=== PATIENT | male | born 1970 | race Two or more races ===

== ENCOUNTER 2017-01-17 14:45 | Emergency (ER) | payer OTHER ==
[~2017-01-17] VITALS: Ht 170.2 cm; Wt 97.5 kg
[~2017-01-17 14:45] MED LIST: [UNRECOGNIZED DRUG - CODE]
[2017-01-17] MEDS ORDERED: LORAZEPAM INJ 2 MG/ML VIAL ONE (15:08)
[2017-01-17] MEDS ORDERED: IV NS 0.9% 1,000 ML ONE (15:11)
[2017-01-17] MEDS ORDERED: IV SET PRIMARY PUMP SET 1 EA INFUS.SET MC ONE ×2 (15:11→17:59)
[2017-01-17 15:17] LABS: BASOPHILS # (AUTO) 0.3 /CMM (0.0-0.2); BASOPHILS % (AUTO) 2.7 % (0.0-2.0); DIFF TOTAL % 100 %; EOSINOPHILS # (AUTO) 0.2 /CMM (0.0-0.7); EOSINOPHILS % (AUTO) 2.4 % (0.0-6.0); HEMATOCRIT 51 % (39-51); LYMPHOCYTES # (AUTO) 3.6 /CMM (0.8-4.8); LYMPHOCYTES % (AUTO) 36.3 % (20.0-44.0); MEAN CORPUSCULAR HEMOGLOBIN 31 PG (26.0-33.0); MEAN CORPUSCULAR HGB CONC 34 g/dl (31.0-36.0); MEAN CORPUSCULAR VOLUME 91 fL (80-96); MONOCYTES # (AUTO) 0.6 /CMM (0.1-1.30); MONOCYTES % (AUTO) 5.9 % (2.0-12.0); NEUTROPHILS # (AUTO) 5.2 /CMM (1.8-8.9); NEUTROPHILS % (AUTO) 52.7 % (43.0-81.0); PLATELET COUNT (AUTO) 295 /CMM (150-450); RED BLOOD CELL COUNT(AUTO) 5.55 MIL/uL (4.5-6.0); WHITE BLOOD COUNT (AUTO) 9.9 K/uL (4.3-11.0)
[2017-01-17] MEDS ORDERED: IV NS 0.9% 1,000 ML BAG IV ONE (15:30)
[2017-01-17] MEDS ORDERED: LORAZEPAM INJ 2 MG/ML VIAL IVP ONE (15:30)
[2017-01-17 15:31] LABS: INR 1.05 (0.87-1.13)
[2017-01-17 15:47] LABS: VALPROIC ACID 1 ug/mL (50-100)
[2017-01-17 15:48] LABS: ALANINE AMINOTRANSFERASE 80 U/L (12-78); ALBUMIN 4.1 g/dL (3.4-5.0); ANION GAP 20 (5-14); ASPARTATE AMINOTRANSFERASE 58 U/L (15-37); BILIRUBIN,DIRECT 0.1 mg/dL (0.0-0.2); BILIRUBIN,TOTAL 0.4 mg/dL (0.2-1.0); CALCIUM, SERUM 8.8 mg/dL (8.5-10.1); CARBON DIOXIDE 20 mmol/L (21-32); CHLORIDE 103 mmol/L (98-107); CREATININE 1.1 mg/dL (0.6-1.3); GFR 71 mL/min (>60); GLUCOSE 150 mg/dL (74-106); POTASSIUM 4.3 mmol/L (3.5-5.1); SODIUM SERUM 139 mmol/L (136-145); UREA NITROGEN, BLOOD 10 mg/dL (7-18)
[2017-01-17 15:49] LABS: INDIRECT BILIRUBIN 0.3 mg/dL (0.0-1.1)
[2017-01-17 16:20] LABS: CANNABINOID, URINE NEGATIVE (NEGATIVE); PHENCYCLIDINE SCREEN,URINE NEGATIVE (NEGATIVE)
[2017-01-17] MEDS ORDERED: PHENYTOIN SODIUM IV 1,000 MG in IV NS 0.9% 100 ML IV ONE (18:00)
[2017-01-17] MEDS ORDERED: DIVA500T2 PO (18:25)
[2017-01-17] MEDS ORDERED: HALO100A2 IM (18:25)
[2017-01-17] MEDS ORDERED: OLAN5TAB3 PO (18:25)
[2017-01-17] MEDS ORDERED: PHEN100C12 PO (18:25)
[2017-01-17] MEDS ORDERED: HALO5TAB PO (18:26)
[2017-01-17] MEDS ORDERED: PYRI100T6 PO (18:26)
[2017-01-17] MEDS ORDERED: BENZ1TAB7 PO (18:26)
[2017-01-17] MEDS ORDERED: LACO200T2 PO (18:26)
[2017-01-17] MEDS ORDERED: DIVALPROEX SODIUM 500 MG TABLET.DR PO ONE (18:51)
[2017-01-17] MEDS ORDERED: VALPROIC ACID 250 MG/5 ML UDC ONE (18:54)
[2017-01-17] MEDS ORDERED: VALPROIC ACID 250 MG/5 ML UDC PO ONE (19:00)
[2017-01-17 21:02] VITALS: BP 128/78
== END 2017-01-17 21:02 | disposition home or self-care (01) ==
LOC: ER 15:37
DX: G40.909 Epilepsy, unspecified, not intractable, without status epilepticus (principal); F20.9 Schizophrenia, unspecified; R79.1 Abnormal coagulation profile
CPT/HCPCS: 36415; 80048; 80076; 80164; 80185; 80305; 85025; 85730; 93005; 96365; 96375; 99285; A4606 ×2; G0480; J1165; J2060; J7030 ×2; Z7610 ×2

== ENCOUNTER 2021-02-19 21:46 | Emergency (ER) | payer OTHER ==
[~2021-02-19] VITALS: Ht 172.7 cm; Wt 67.1 kg
[~2021-02-19 21:46] MED LIST changes: +BENZ1TAB7 PO; +DIVA500T2 PO; +HALO100A2 IM; +HALO5TAB PO; +LACO200T2 PO; +OLAN5TAB3 PO; +PHEN100C12 PO; +PYRI100T6 PO; -[UNRECOGNIZED DRUG - CODE]
[2021-02-19] MEDS ORDERED: LEVETIRACETAM SOL (5 ML) 100 MG/ML UDC PO SCH (22:30)
[2021-02-19] MEDS ORDERED: LEVETIRACETAM (250 MG) 250 MG TABLET PO ONE (22:40)
[2021-02-19] MEDS ORDERED: LORAZEPAM INJ 2 MG/ML VIAL ONE (23:00)
--- NOTE | 2021-02-19 23:00 | NUR ---
NOTED PT HAVING SEIZURE, ERM,D MADE AWARE WITH ORDERS RECEIVED. WILL MEDICATE PT.
--- NOTE | 2021-02-19 23:03 | NUR ---
PT MEDICATED ORDERED.
[2021-02-19] MEDS ORDERED: LORAZEPAM INJ 2 MG/ML VIAL IV ONE (23:30)
[2021-02-20] MEDS ORDERED: PHENYTOIN SODIUM IV 100 MG/2ML VIAL ONE (00:26)
[2021-02-20] MEDS ORDERED: phenytoin SODIUM IV 250 MG/5 ML VIAL IV ONE (00:29)
[2021-02-20] MEDS ORDERED: PHENYTOIN SODIUM IV 1,000 MG in IV NS 0.9% 100 ML IV ONE (00:30)
--- NOTE | 2021-02-20 01:32 | NUR ---
Patient discharged to home in stable condition. Written and verbal after care instructions given. Patient verbalizes understanding of instruction. IV removed. Catheter intact and site benign. Pressure and 4x4 applied to site. No bleeding noted.
[2021-02-20 01:35] VITALS: BP 125/70
[2021-02-20] MEDS ORDERED: ZONI100C31 PO (17:47)
[2021-02-20] MEDS ORDERED: HYDR-500 PO (17:47)
[2021-02-20] MEDS ORDERED: VALB80CA PO (17:47)
[2021-02-22] MEDS ORDERED: DIVA500T2 PO (11:26)
== END 2021-02-20 01:35 | disposition home or self-care (01) ==
LOC: ER 21:49
DX: G40.909 Epilepsy, unspecified, not intractable, without status epilepticus (principal); F20.9 Schizophrenia, unspecified; Z79.899 Other long term (current) drug therapy
CPT/HCPCS: 36415; 80185; 93005; 96365; 96375; 99284; J1165; J2060; J7030; J7040

== ENCOUNTER 2021-02-20 15:16 | Inpatient (IN) | payer OTHER ==
[~2021-02-20] VITALS: Ht 172.7 cm; Wt 92.5 kg
[2021-02-20] MEDS ORDERED: LEVETIRACETAM (500MG) 1,000 MG in IV NS 0.9% 100 ML IV SCH (15:30)
[2021-02-20] MEDS ORDERED: LEVETIRACETAM (500MG) 500 MG in IV NS 0.9% 100 ML IV ONE (15:30)
--- NOTE | 2021-02-20 15:50 | NUR ---
ABRIL FROM HOME TO ER BED 6. AAOX3. NOT IN RESP DISTRESS, BREATHING EVEN AND UNLABORED. BROUGHT IN FOR A WITNESSED SEIZURE. NO REPORT OF FALL. NO HEAD TRAUMA AND ORAL TRAUMA NOTED. PT IS PLACE DON SEIZURE PRECAUTION, PADDED SIDERAILS. MD WAS AT THE BEDSIDE FOR EVAL. ORDERS RECEIVED, NOTED AND CARRIED OUT.
[2021-02-20 15:52] LABS: BASOPHILS % (AUTO) 0.4 % (0.0-2.0); EOSINOPHILS % (AUTO) 0.7 % (0.0-6.0); HEMATOCRIT 43 % (39-51); HEMOGLOBIN 14.9 g/dL (13.5-17.5); LYMPHOCYTES # (AUTO) 2.5 /CMM (0.8-4.8); LYMPHOCYTES % (AUTO) 28.5 % (20.0-44.0); MEAN CORPUSCULAR HGB CONC 35 g/dl (31.0-36.0); MEAN CORPUSCULAR VOLUME 92 fL (80-96); MONOCYTES # (AUTO) 0.8 /CMM (0.1-1.30); MONOCYTES % (AUTO) 8.8 % (2.0-12.0); NEUTROPHILS # (AUTO) 5.4 /CMM (1.8-8.9); NEUTROPHILS % (AUTO) 61.6 % (43.0-81.0); PLATELET COUNT (AUTO) 296 /CMM (150-450); RED BLOOD CELL COUNT(AUTO) 4.63 MIL/uL (4.5-6.0); WHITE BLOOD COUNT (AUTO) 8.8 K/uL (4.3-11.0)
[2021-02-20 16:16] LABS: CALCIUM, SERUM 8.7 mg/dL (8.5-10.1); CREATININE 0.9 mg/dL (0.6-1.3); POTASSIUM 3.6 mmol/L (3.5-5.1)
--- NOTE | 2021-02-20 16:40 | NUR ---
MOTHER COREY [phone]
[2021-02-20] MEDS ORDERED: IV NS 0.9% 1,000 ML BAG IV ONE (17:30)
[2021-02-20] MEDS ORDERED: ZONI100C31 PO (17:47)
[2021-02-20] MEDS ORDERED: HYDR-500 PO (17:47)
[2021-02-20] MEDS ORDERED: VALB80CA PO (17:47)
--- NOTE | 2021-02-20 18:28 | NUR ---
LAB CALLED PT COVID RESULT NEGATIVE (-)
--- NOTE | 2021-02-20 19:31 | NUR ---
PT TO CT ON [place]
--- NOTE | 2021-02-20 21:00 | NUR ---
REPORT GIVEN TO SEAMUS SHELTON FOR DERRELL
[2021-02-20 21:10] VITALS: BP 122/77
--- NOTE | 2021-02-20 21:11 | NUR ---
PT TRANSPORT NANCY TO UNIT ON [facility] WITH EMT AND RN AT BEDSIDE W/ ACLS PROTOCOL. NAD NOTED DURING TRANSPORT.
--- NOTE | 2021-02-20 21:15 | NUR ---
RN NOTES Received pt. from ER with Dx. Of Breakthrough Seizures, a/ox2-3, SR on tele monitor HR-79, admission instruction was given, call light within reach, siderialsupx2, continue to monitor
[2021-02-20 21:20] VITALS: BP 122/77
[2021-02-20] MEDS: LEVETIRACETAM (250 MG) 250 MG TABLET PO SCH (21:59)
[2021-02-20] MEDS ORDERED: ZOLPIDEM TARTRATE 5 MG TABLET PO PRN (22:00)
[2021-02-20] MEDS ORDERED: LORAZEPAM INJ 2 MG/ML VIAL IV PRN (22:00)
[2021-02-20] MEDS ORDERED: ACETAMINOPHEN 325 MG TABLET PO PRN (22:00)
[2021-02-20] MEDS ORDERED: ONDANSETRON HCL/PF 4 MG/2 ML VIAL IVP PRN (22:00)
[2021-02-20] MEDS ORDERED: HYDROCODONE/APAP 5/325MG TABLET PO PRN (22:00)
[2021-02-21] VITALS: BP 113/71
--- NOTE | 2021-02-21 | NUR ---
RN NOTES Patient pulled out his IV access and refused to have another one, will try again later
--- NOTE | 2021-02-21 02:06 | NUR ---
RN NOTES Clarify with DR. Finn regarding pt's Keppra 500mg IV Q 12 hrs. which was ordered by in ER and pharmacy continued it... pt is also receiving Keppra 1000mg po .. Dr. Finn order to discontinue Keppra IV , order noted and carried out
[2021-02-21 04:07] VITALS: BP 124/75
--- NOTE | 2021-02-21 06:05 | NUR ---
RN NOTES Dr Finn came and made aware that pt. pulled out his IV access and refused to have one at this time.
--- NOTE | 2021-02-21 06:16 | NUR ---
RN NOTES AWAKE, MORNING CARE RENDERED, CALL LIGHT WITHIN REACH, [id number], PT. NEEDS ATTENDED
--- NOTE | 2021-02-21 07:00 | NUR ---
TELE OPENING NOTES RECEIVED REPORT FROM SEAMUS SHELTON. PT. IN BED ALERT AND ORIENTED X2. PATIENT SAID "BLAIRE IS COMING" ON DERRELL REPORT. SINUS RHYTHM AND SINUS TACHY. RESPIRATORY ROOM AIR. NO IV ACCESS WILL FOLLOW UP WITH MD. REPORTS NO PAIN. FALL AND SEIZURE PRECAUTION PUT IN PLACE. PADDED SIDE RAILS AND SUCTION AT BED SIDE. CALL LIGHT WITHIN REACH. URINAL WITHIN REACH.
[2021-02-21 07:36] LABS: BASOPHILS % (AUTO) 0.2 % (0.0-2.0); EOSINOPHILS % (AUTO) 0.7 % (0.0-6.0); HEMATOCRIT 45 % (39-51); HEMOGLOBIN 15.3 g/dL (13.5-17.5); LYMPHOCYTES # (AUTO) 1.9 /CMM (0.8-4.8); LYMPHOCYTES % (AUTO) 24.8 % (20.0-44.0); MEAN CORPUSCULAR HGB CONC 34 g/dl (31.0-36.0); MEAN CORPUSCULAR VOLUME 93 fL (80-96); MONOCYTES # (AUTO) 0.6 /CMM (0.1-1.30); MONOCYTES % (AUTO) 7.5 % (2.0-12.0); NEUTROPHILS % (AUTO) 66.8 % (43.0-81.0); PLATELET COUNT (AUTO) 346 /CMM (150-450); RED BLOOD CELL COUNT(AUTO) 4.82 MIL/uL (4.5-6.0); WHITE BLOOD COUNT (AUTO) 7.5 K/uL (4.3-11.0)
[2021-02-21] MEDS: PANTOPRAZOLE 40 MG TABLET.DR PO SCH (07:47)
[2021-02-21 08:00] VITALS: BP 118/73
[2021-02-21 08:08] LABS: ALBUMIN 3.5 g/dL (3.4-5.0); BILIRUBIN,TOTAL 0.5 mg/dL (0.2-1.0); CALCIUM, SERUM 8.6 mg/dL (8.5-10.1); MAGNESIUM 2.5 mg/dL (1.8-2.4); PHOSPHORUS 3.3 mg/dL (2.5-4.9); POTASSIUM 3.5 mmol/L (3.5-5.1); TOTAL PROTEIN, SERUM 7.6 g/dL (6.4-8.2)
[2021-02-21 08:11] LABS: THYROID STIMULATING HORMONE 2.93 uIU/mL (0.358-3.74)
[2021-02-21] MEDS ORDERED: DIVALPROEX SODIUM 500 MG TABLET.DR PO SCH (09:00)
[2021-02-21] MEDS: LACOSAMIDE 50 MG TABLET PO SCH ×2 (09:47→21:15)
[2021-02-21] MEDS: LEVETIRACETAM (250 MG) 250 MG TABLET PO SCH ×2 (09:47→21:15)
[2021-02-21] MEDS: BENZTROPINE MESYLATE (1 MG) 1 MG TABLET PO SCH ×2 (09:47→17:26)
[2021-02-21] MEDS: PYRIDOXINE HCL 50 MG TABLET PO SCH (09:48)
[2021-02-21] MEDS: ZONISAMIDE 100 MG CAPSULE PO SCH (10:04)
[2021-02-21] MEDS: hydrOXYzine PAMOATE 25 MG CAPSULE PO SCH (10:04)
--- NOTE | 2021-02-21 13:00 | NUR ---
PATIENT'S MOM DROPPED OFF LUNCH FOR PT. AT 1135 DOWN TO SECURITY. PATIENT EATS ABOUT 25% OF HIS FOOD. PT NEEDS TO BE FED IF NOT HE DOES NOT TOUCH HIS FOOD. PT KEEPS SCREAMING "BLAIRE IS COMING" AND EVEN REPORTS HE WANT TO SEE BLAIRE. SAFETY PRECAUTION IN PLACE: FALL AND SEIZURE. BED IN LOWEST POSITION. CALL LIGHT WITHIN REACH. URINAL WITHIN REACH. WILL CONTINUE TO MONITOR.
--- NOTE | 2021-02-21 14:49 | NUR ---
RN NOTES NEW IV ACCESS INSERTED AT R WRIST GAUGE NUMBER 22. SECURED WITH TAPE AND DATED. WILL CONTINUE TO MONITOR.
[2021-02-21] MEDS: DIVALPROEX SODIUM 250 MG TABLET.DR PO SCH (17:26)
--- NOTE | 2021-02-21 18:47 | NUR ---
RN CLOSING NOTES PT. IN BED ALERT AND ORIENTED X2 TO NAME AND PLACE. PT. REPORTS OF WANTING TO SEE BLAIRE AND LAUGHS HYSTERICALLY OUT OF NOWHERE. SINUS TACHY. RESPIRATORY ROOM AIR. SALINE LOCK IN RIGHT WRIST 22G INITIAL AND DATED. DENIES PAIN OR DISCOMFORT. DENIES OF SEIZURE AURA. CONTINENT. 1, 350 ML OF OUTPUT FOR THE WHOLE SHIFT, TANO COLOR. NO BOWEL MOVEMENT. FALL AND SEIZURE PRECAUTION PUT IN PLACE. PADDED SIDE RAILS AND SUCTION AT BED SIDE. BED IN LOWEST POSITION. CALL LIGHT WITHIN REACH. URINAL WITHIN REACH. WILL TRANSFER CARE/MONITORING TO NEXT SHIFT.
[2021-02-21 20:00] VITALS: BP 116/85
[2021-02-22] VITALS: BP 109/69
[2021-02-22 04:00] VITALS: BP 117/75
--- NOTE | 2021-02-22 06:20 | NUR ---
INSPECTOR OF DREDGING NOTES AWAKE & RESPONSIVE. NOT IN ANY DISTRESS. NO SOB NOTED. DENIES ANY PAIN OR DISCOMFORT AT THIS TIME. ON TELE SR @ 84 WITH IV-HL PATENT & INTACT. MONITORED ACCORDINGLY. CALL LIGHT WITHIN REACH. BED IN LOWEST POSITION. SR UP X 3 WITH BED ALARM ON FOR SAFETY. WILL ENDORSE TO NEXT SHIFT.
--- NOTE | 2021-02-22 07:23 | NUR ---
RN NOTES PT. IS IN BED RESTING, EYES CLOSED, ABLE TO BE AWAKENED. ALERT AND ORIENTED X1-2, ABLE TO MAKE NEEDS KNOWN. BREATHING EVEN AND UNLABORED, TOLERATING ROOM AIR. IV LINE ON RIGHT WRIST #22 INTACT AND PATENT. NO SEIZURE EPISODE AT THIS TIME. PATIENT ABLE TO AMBULATE TO BATHROOM W/ ASSIST. FALL AND SEIZURE PRECAUTIONS OBSERVED. WILL CONTINUE TO MONITOR..
[2021-02-22 08:00] VITALS: BP 100/64
[2021-02-22] MEDS: PYRIDOXINE HCL 50 MG TABLET PO SCH (08:47)
[2021-02-22] MEDS: DIVALPROEX SODIUM 250 MG TABLET.DR PO SCH ×2 (08:47→16:24)
[2021-02-22] MEDS: BENZTROPINE MESYLATE (1 MG) 1 MG TABLET PO SCH ×2 (08:47→16:24)
[2021-02-22] MEDS: PANTOPRAZOLE 40 MG TABLET.DR PO SCH (08:48)
[2021-02-22] MEDS: LEVETIRACETAM (250 MG) 250 MG TABLET PO SCH (08:48)
[2021-02-22] MEDS: LACOSAMIDE 50 MG TABLET PO SCH (08:49)
[2021-02-22] MEDS: ZONISAMIDE 100 MG CAPSULE PO SCH (08:58)
[2021-02-22] MEDS: hydrOXYzine PAMOATE 25 MG CAPSULE PO SCH (08:58)
[2021-02-22] MEDS ORDERED: DIVA500T2 PO (11:26)
--- NOTE | 2021-02-22 13:28 | NUR ---
RN NOTES PHOTO OF SKIN ISSUE TAKEN VERBALLY CONSENTED BY PATIENT; PHOTO OF SKIN ISSUE PLACED IN PATIENT'S CHART.
[2021-02-22 16:04] VITALS: BP 108/67
--- NOTE | 2021-02-22 17:43 | NUR ---
GOLD LEAF LAYER NOTES PATIENT WAS SEEN BY DR. PENA W/ ORDER FOR DISCHARGE TO HOME. DISCHARGE INSTRUCTIONS AND EDUCATION PROVIDED TO PATIENT AND PATIENT'S MOTHER, FATMATA. DISCHARGE FORM AND BELONGINGS LIST FORM SIGNED BY PATIENT; ALL BELONGINGS ACCOUNTED FOR. NAME ARMBAND AND IV LINE REMOVED; NO BLEEDING NOTED. PHOTO OF SKIN ISSUE TAKEN AND PLACED IN THE CHART; NO OTHER SKIN ISSUES OBSERVED. PATIENT WAS ACCOMPANIED BY SHIVAM RN, TO THE LOBBY VIA WHEELCHAIR AND PICKED UP BY MOTHER VIA PRIVATE CAR. CHARGE NURSE AND MD AWARE OF DISCHARGE.
[2021-02-23] MEDS ORDERED: Valbenazine Tosylate (Ingrezza) 80 MG PO SCH (09:00)
== END 2021-02-22 17:43 | disposition home or self-care (01) | DRG 53 ==
LOC: ER 15:22 → TELE 20:51
PROVIDERS: ADMIT Internal Medicine; ATTEND Internal Medicine
DX: G40.909 Epilepsy, unspecified, not intractable, without status epilepticus (principal); F25.9 Schizoaffective disorder, unspecified; E66.9 Obesity, unspecified; Z68.31 Body mass index [BMI] 31.0-31.9, adult; Z20.822 Contact with and (suspected) exposure to COVID-19; H70.92 Unspecified mastoiditis, left ear; S00.03XA Contusion of scalp, initial encounter; W19.XXXA Unspecified fall, initial encounter; Y93.9 Activity, unspecified; Y92.009 Unspecified place in unspecified non-institutional (private) residence as the place of occurrence of the external cause
CPT/HCPCS: 36415; 70450-TC; 71045-TC; 80048-TC; 80053-TC; 80061-TC; 80164-TC; 83735-TC; 84100-TC; 84443-TC; 84484-TC; 85025-TC; 87081-TC; C9803; G0378; J1953; J7030; Q0177

== ENCOUNTER 2021-10-03 15:32 | Emergency (ER) | payer OTHER, MEDICAID ==
[~2021-10-03] VITALS: Ht 172.7 cm; Wt 86.2 kg
[~2021-10-03 15:32] MED LIST changes: -HALO100A2 IM; -HALO5TAB PO; +HYDR-500 PO; -OLAN5TAB3 PO; +VALB80CA PO; +ZONI100C31 PO
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
--- NOTE | 2021-10-03 17:00 | NUR ---
PT LAYING COMFORTABLY IN BED.
--- NOTE | 2021-10-03 18:42 | NUR ---
Patient discharged to home in stable condition. Written and verbal after care instructions given. Patient verbalizes understanding of instruction.
[2021-10-03 19:03] VITALS: BP 121/79
== END 2021-10-03 18:55 | disposition home or self-care (01) ==
LOC: ER 15:52
DX: S06.0X0A Concussion without loss of consciousness, initial encounter (principal); F20.9 Schizophrenia, unspecified; Z79.899 Other long term (current) drug therapy; W22.8XXA Striking against or struck by other objects, initial encounter; Y93.89 Activity, other specified; Y92.89 Other specified places as the place of occurrence of the external cause; Y99.8 Other external cause status
CPT/HCPCS: 70450-TC